=== PATIENT | female | born 1995 | race Two or more races ===

== ENCOUNTER 2019-08-08 06:22 | Outpatient (CLI) | payer OTHER | END 2019-08-08 06:40 | disposition home or self-care (01) | LOC: LAB 06:22 | DX: K60.0 Acute anal fissure (principal); K64.8 Other hemorrhoids; K58.1 Irritable bowel syndrome with constipation; R14.1 Gas pain; R14.0 Abdominal distension (gaseous) ==

== ENCOUNTER 2021-04-07 14:27 | Outpatient (CLI) | payer OTHER | END 2021-04-07 14:35 | disposition home or self-care (01) | LOC: SONOGRAMA 14:27 | PROVIDERS: ATTEND Obstetrics & Gynecology | DX: R10.2 Pelvic and perineal pain (principal) ==

== ENCOUNTER → 2021-04-13 06:20 | Outpatient (CLI) | payer OTHER | END | disposition home or self-care (01) | LOC: LAB 06:20 | PROVIDERS: ATTEND Obstetrics & Gynecology | DX: E03.8 Other specified hypothyroidism (principal); I10 Essential (primary) hypertension; Z00.00 Encounter for general adult medical examination without abnormal findings; E78.00 Pure hypercholesterolemia, unspecified; N39.0 Urinary tract infection, site not specified; Z11.4 Encounter for screening for human immunodeficiency virus [HIV]; E55.9 Vitamin D deficiency, unspecified; Z21 Asymptomatic human immunodeficiency virus [HIV] infection status; R79.89 Other specified abnormal findings of blood chemistry; Z11.3 Encounter for screening for infections with a predominantly sexual mode of transmission; Z11.59 Encounter for screening for other viral diseases; M35.01 Sjogren syndrome with keratoconjunctivitis; M33.21 Polymyositis with respiratory involvement ==